=== PATIENT | female | born 1975 | race Caucasian/White ===

== ENCOUNTER 2016-11-30 07:45 | Emergency (ER) | payer BC ==
[2016-11-30] MEDS ORDERED: Nitroglycerin 0.4 MG Tab.SL ONE ×2 (08:04)
[2016-11-30] MEDS ORDERED: Heparin Sodium 5,000 Units/ML Vial ONE (08:04)
[2016-11-30] MEDS ORDERED: Aspirin 81 MG Tab.Chew ONE (08:04)
[2016-11-30] MEDS ORDERED: Morphine 2 MG/ML Syringe ONE ×2 (08:04→08:07)
[2016-11-30] MEDS ORDERED: Metoprolol Tartrate 25 MG Tab ONE (08:04)
[2016-11-30] MEDS ORDERED: Clopidogrel 75 MG Tab ONE (08:04)
--- NOTE | 2016-11-30 08:05 | EDM.PDOC ---
ED HPI GENERAL MEDICAL PROBLEM - General Chief Complaint: Chest Pain Stated Complaint: Chest pain with sudden onset prior to arrival. Time Seen by Provider: 11/30/16 08:32 Source of Information: Reports: Patient, RN History Limitations: Reports: Other (Anxiety and chest pain somewhat limit patients ability to communicate adequately when answering questions) - History of Present Illness Onset: Today, Sudden Onset Date: 11/30/16 Onset Time: 07:00 Duration: Minutes:, Constant, Getting Worse, Heavy Location: Reports: Chest Quality: Reports: Sharp, Stabbing Severity: Severe Improves with: Reports: None Worsens with: Reports: None Associated Symptoms: Reports: Cough (cough for two weeks). Denies: Diaphoresis , Nausea/Vomiting Treatments DERRICK ENGINEER: Reports: Other (see below) (none) - Related Data Allergies Allergy/AdvReac Type Severity Reaction Status Date / Time No Known Allergies Allergy Verified 11/24/16 13:55 Past Medical History Musculoskeletal History: Reports: Back Pain, Chronic ED ROS GENERAL - Review of Systems Review Of Systems: See Below Constitutional: Reports: No Symptoms HEENT: Reports: No Symptoms Respiratory: Reports: Shortness of Breath, Wheezing, Cough (has been fighting a cold for about two weeks) Cardiovascular: Reports: Chest Pain (mid and upper sternal chest pain) Endocrine: Reports: No Symptoms GI/Abdominal: Reports: No Symptoms : Reports: No Symptoms Musculoskeletal: Reports: Other (Chronic back pain, on opioids) Skin: Reports: No Symptoms Neurological: Reports: No Symptoms Psychiatric: Reports: Anxiety Hematologic/Lymphatic: Reports: No Symptoms Immunologic: Reports: No Symptoms ED EXAM, GENERAL - Physical Exam Exam: See Below Exam Limited By: No Limitations General Appearance: Alert, WD/WN, Anxious, Severe Distress (due to chest pain) Eye Exam: Bilateral Eye: PERRL Ears: Normal External Exam Throat/Mouth: Other (dry lips) Head: Atraumatic, Normocephalic Neck: Normal Inspection Respiratory/Chest: Other (lungs coarse, voice hoarse and hacky cough) Cardiovascular: Normal Peripheral Pulses, Regular Rate, Rhythm Peripheral Pulses: 3+: Radial (L), Radial (R) (Female) Exam: Deferred Rectal (Female) Exam: Deferred Extremities: Normal Inspection, No Pedal Edema Neurological: Alert, Oriented Psychiatric: Anxious, Tearful Skin Exam: Warm, Dry, Intact Lymphatic: No Adenopathy EKG INTERPRETATION EKG Date: 11/30/16 Time: 07:53 Rhythm: NSR Rate (Beats/Min): 69 [place]: Normal P-Wave: Present QRS: Normal ST-T: Other (ST elevation in inferior leads, T wave inversion in lateral leads) QT: Normal (Acute Stemi in inferolateral leads) Course - Orders/Labs/Meds Orders: Active Orders 24 hr Category Date Time Status COMPREHENSIVE METABOLIC PN,CMP [CHEM] Stat Lab 11/30/16 07:55 Received CREATINE KINASE,CK [CHEM] Stat Lab 11/30/16 07:55 Received Labs: Laboratory Tests 11/30/16 11/30/16 11/30/16 Range/Units 07:55 07:55 07:59 WBC 8.7 (4.0-10.0) x10^3/uL RBC 4.88 (4.00-5.50) x10^6/uL Hgb 13.4 (12.0-16.0) g/dL Hct 41.3 (33.0-47.0) % MCV 84.6 (78.0-93.0) fL MCH 27.5 (26.0-32.0) pg MCHC 32.4 (32.0-36.0) g/dL RDW Coeff of [place]olis 15.3 H (10.0-15.0) % Plt Count 279 (130-400) x10^3/uL Neut % (Auto) 45.7 L (50.0-80.0) % Lymph % (Auto) 38.8 (25.0-50.0) % [place] % (Auto) 10.5 (2.0-11.0) % Eos % (Auto) 4.8 H (0.0-4.0) % Baso % (Auto) 0.2 (0.2-1.2) % PT 10.4 (9.8-11.8) SEC INR 1.0 L (2.0-3.5) APTT 29.2 (22.0-34.0) SEC POC Troponin I 0.03 (0.00-0.08) ng/mL Meds: Medications Discontinued Medications Generic Name Dose Route Start Last Admin Trade Name Freq PRN Reason Stop Dose Admin Heparin Sodium/Sodium Chloride Confirm 11/30/16 08:16 Heparin 25,000 Units In 1/2 Ns 500 Ml Administered 11/30/16 08:17 Dose 500 mls @ as directed .ROUTE .STK-MED ONE Morphine Sulfate Confirm 11/30/16 08:07 Morphine Administered 11/30/16 08:08 Dose 2 mg .ROUTE .STK-MED ONE - Re-Assessments/Exams Free Text/Narrative Re-Assessment/Exam: 11/30/16 08:46 Patient arrived in ER at approximately 0745 with complaints of mid and upper sternal chest pain. Initial EKG showed STEMI in inferolateral leads. STEMI code called and all interventions initiated as per STEMI protocol. See nurses notes for times and doses of drugs. Patient given Plavix, aspirin, Heparin, Lopressor, Morphine. [place] Large Bore IVs started in AC. ALS ambulance called. [facility] ER contacted via [employer] call. Spoke with VINICIUS Montgomery who agreed to accept patient in Transfer for Dr Baez (Cardiology) with whom she consulted. EKG faxed for their review. Labs done and initial troponin is negative. Other labs pending at time of transfer. Initial BP was high so two doses of SL nitro given. Drip not hung due to inferolateral [place]. Patient was discharged via ALS ambulance at 0814 in stable but guarded condition for transfer to [facility] for tentative PCI. arrived shortly after patient left and was updated on events with his as per her request. Departure - Departure Time of Disposition: 08:15 Disposition: DC/Tfer to Acute Hospital 02 Reason for Transfer *Q: Primary PCI Indicated Clinical Impression: STEMI (ST elevation myocardial infarction) Qualifiers: Involved coronary artery: unspecified coronary artery Qualified Code(s): I21.3 - ST elevation (STEMI) myocardial infarction of unspecified site Forms: ED Department Discharge Critical Care Note - Critical Care Note Total Time (mins): 30 Comments: Patient arrived in ER with upper sternal chest pain. EKG showed STEMI. STEMI protocol initiated and Stemi code called. Patient was transferred To [facility] via ALS within approximately 30 minutes. ED Communication - Discussed Case With (1) Discussed Case With (1): Other (Contacted [employer] Call and spoke with VINICIUS Montgomery (Cardiology) who agreed to accept patient in Transfer for Dr. Tran) - My Orders Last 24 Hours: My Active Orders 11/30/16 07:55 COMPREHENSIVE METABOLIC PN,CMP [CHEM] Stat CREATINE KINASE,CK [CHEM] Stat - Assessment/Plan Last 24 Hours: My Active Orders 11/30/16 07:55 COMPREHENSIVE METABOLIC PN,CMP [CHEM] Stat CREATINE KINASE,CK [CHEM] Stat
[2016-11-30] MEDS ORDERED: Heparin Sodium/0.45% NaCl 500 ML ONE (08:16)
[2016-11-30 08:27] LABS: CHLORIDE,CL 103 mmol/L (98-107); SODIUM,NA 141 mmol/L (136-145)
== END 2016-11-30 08:14 | disposition short-term general hospital (02) ==
LOC: VM.ED 07:45
DX: I21.3 ST elevation (STEMI) myocardial infarction of unspecified site (principal)
CPT/HCPCS: 80053; 82550; 84484; 85025; 85610; 85730; 93005; 96374; 96375; 99285; A9270-GY; J1644; J2270

== ENCOUNTER 2022-07-31 06:31 | Day surgery (SDC) | payer BC ==
[2022-07-31] MEDS: Lactated Ringers 1,000 ML IV SCH (06:54)
[2022-07-31] MEDS ORDERED: fentaNYL 100 MCG/2 ML SDV ONE (07:11)
[2022-07-31] MEDS ORDERED: Propofol 200 MG/20 ML SDV ONE ×3 (07:12→08:14)
[2022-07-31 09:37] VITALS: BP 119/63; PULSE 67
== END 2022-07-31 10:00 | disposition home or self-care (01) ==
LOC: VM.SDS 06:31
PROVIDERS: ATTEND Student in an Organized Health Care Education/Training Program
DX: Z12.11 Encounter for screening for malignant neoplasm of colon (principal); D12.0 Benign neoplasm of cecum; Q43.8 Other specified congenital malformations of intestine; E78.00 Pure hypercholesterolemia, unspecified; I25.2 Old myocardial infarction; I25.10 Atherosclerotic heart disease of native coronary artery without angina pectoris; I11.0 Hypertensive heart disease with heart failure; I50.20 Unspecified systolic (congestive) heart failure; K21.9 Gastro-esophageal reflux disease without esophagitis; M19.90 Unspecified osteoarthritis, unspecified site; G47.33 Obstructive sleep apnea (adult) (pediatric); M47.816 Spondylosis without myelopathy or radiculopathy, lumbar region; E66.9 Obesity, unspecified; Z95.5 Presence of coronary angioplasty implant and graft; Z90.710 Acquired absence of both cervix and uterus; Z79.899 Other long term (current) drug therapy; Z79.82 Long term (current) use of aspirin; Z90.79 Acquired absence of other genital organ(s); Z90.722 Acquired absence of ovaries, bilateral
CPT/HCPCS: 00811; J2704; J3010; J7120